=== PATIENT | male | born 1975 | race Caucasian/White ===

== ENCOUNTER 2024-03-26 22:35 | Observation (INO) | payer OTHER, SELFPAY ==
[2024-03-26] VITALS (7 sets, daily range): BP systolic 141–158; BP diastolic 94–104; PULSE 89–102; RESP 12–23; TEMP 37.2; O2SAT 95–97
--- NOTE | ~2024-03-26 | XR_ITS ---
EXAMINATION: XR chest 1V portable Exam Date/Time: 03/26/2024 22:55 CDT HISTORY: CHEST PAIN Comparison: None. RESULT: Lines, tubes, and devices: None. Lungs and pleura: Clear. Cardiomediastinal silhouette: Normal. Other: No acute osseous or upper abdominal finding. IMPRESSION: No acute cardiopulmonary process. Reviewed, dictated and finalized at location K.
--- NOTE | 2024-03-26 22:47 | PC.NURSE ---
DR HOYOS AT BEDSIDE FOR EVAL AND ASSESSMENT.
--- NOTE | 2024-03-26 22:52 | ECG_ITS ---
SEE SCANNED COPY FOR CONFIRMED REPORT MTDD
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
[2024-03-26 23:01] LABS: Basophils Absolute Auto 0.06 K/mm3 (0.00-0.10); Basophils Percent Auto 1.3 % (0.0-1.0); Eosinophils Absolute Auto 0.11 K/mm3 (0.02-0.50); Eosinophils Percent Auto 2.3 % (1.0-6.0); Hematocrit 43.4 % (40.0-54.0); Immature Granulocyte Absolute 0.01 K/mm3 (0.00-0.00); Immature Granulocyte Percent A 0.2 % (0.0-0.0); Immature Platelet Fraction Pct 1.5 % (1.0-7.0); Lymphocytes Absolute Auto 2.39 K/mm3 (1.10-4.50); Lymphocytes Percent Auto 49.8 % (18.0-42.0); Mean Corpuscular HGB Conc 34.6 g/dL (32-36); Mean Corpuscular Volume 95.4 fL (78.0-102.0); Monocytes Absolute Auto 0.42 K/mm3 (0.10-0.90); Monocytes Percent Auto 8.8 % (2.0-11.0); Neutrophils Absolute Auto 1.81 K/mm3 (1.70-7.20); Neutrophils Percent Auto 37.6 % (50.0-70.0); Red Blood Count 4.55 M/mm3 (4.70-6.10); Red Cell Distribution Width 13.1 % (11.6-14.4); White Blood Count 4.8 K/mm3 (4.8-10.8)
[2024-03-26 23:02] LABS: Platelet Count Result 91 K/mm3 (150-420)
[2024-03-26] MEDS: ASPIRIN 81 MG CHEWABLE TABLET 324 MG PO (23:06)
[2024-03-26] MEDS: NITROGLYCERIN OINTMENT 1 INCH DOSE TRANSDERM (23:07)
[2024-03-26 23:15] LABS: INR 0.9; Prothrombin Time 10.4 Seconds (9.50-12.1)
[2024-03-26 23:24] LABS: Albumin Level 3.5 g/dL (3.4-5.0); Bilirubin,Total 0.4 mg/dL (0.00-1.00); Blood Urea Nitrogen 15 mg/dL (7-18); Calcium 9.1 mg/dL (8.5-10.1); NT Pro B Type Natriuretic Pept 42 pg/mL (0-125)
[2024-03-26 23:39] LABS: Alanine Aminotransferase 38 U/L (16-63); Alkaline Phosphatase 87 U/L (46-116); Anion Gap 10 mmol/L (4-12); Aspartate Amino Transferase 27 U/L (15-37); Carbon Dioxide 28 mmol/L (21-32); Chloride 105 mmol/L (98-108); Estimated Glomerular Filt Rate > 60; Glucose 105 mg/dL (70-99); Osmolality Calculated 296 mOsm/kg (285-295); Potassium 3.5 mmol/L (3.5-5.1); Sodium 143 mmol/L (136-145); Total Protein 6.8 g/dL (6.4-8.2); Troponin I 5.8 ng/L (0.00-60.4)
[2024-03-26 23:40] LABS: Ethanol < 3 mg/dL (0-6)
[2024-03-27] VITALS (9 sets, daily range): BP systolic 111–128; BP diastolic 67–79; PULSE 59–100; RESP 16–20; TEMP 36.4–36.8; O2SAT 94–97; BMI 29.7
--- NOTE | 2024-03-27 01:11 | ADMGEN ---
This patient, Farshad Beck, was admitted to 2nd Floor Room 208-2. Patient/family oriented to hospital policies and general routines including ID bracelet, bed and alarms, visiting hours, pain management, procedures, bathroom and other care routines, personal items, smoking policy, room service/diet, and visiting hours. Information on how to activate the Rapid Response Team has been discussed. Patient/Family are encouraged to report perceived risks to care and to ask questions if they do not understand what they are told or what they should do.
[2024-03-27 02:26] LABS: Troponin I 5.7 ng/L (0.00-60.4)
[2024-03-27 05:57] LABS: Troponin I 9.1 ng/L (0.00-60.4)
--- NOTE | 2024-03-27 08:54 | PM.SD2 ---
Same Day Admit/Disch: HPI History of Present Illness Chief complaint: CHEST PAIN ANXIETY Narrative: Farshad Beck is a 48 year old male with a PMH of HLD, HTN, GERD, and possible asthma vs bronchitis who presented to the ED with complaints of sub-sternal chest pain yesterday after not taking his morning medications. He denies radiation of pain or associated shortness of breath. Activity did not seem to effect the nature of the pain. Initial troponin was negative, BNP negative. He was found to be hypertensive 150's/100's. He was given nitro paste with minimal improvement in chest pain. He was admitted for observation overnight with serial troponin measurements. On exam today he denies chest pain and states that his pain resolved after getting his blood pressure medications yesterday. He reports that he follows with a boy's adviser at [employer] whom he recently seen in January of this year. I reviewed his [facility] provider notes with his permission. His boy's adviser notes show recently having both a standard stress test and nuclear med stress test both negative for acute coronary concerns. Stress test report reads normal with frequent PVCs in isolated couplets seen at the peak of the stress test. His ECHO from 07/2023 was normal with an estimated EF of 60-65%. No systolic or diastolic function noted. He has no PMH of atrial fibrillation so I'm unsure why he is on diltiazem if only for blood pressure control. His lisinopril is only at 30 mg daily. Would recommend titrating this medication up and if needed could add amlodipine or htcz for further blood pressure control. Will discontinue his diltiazem and Imdur as is chest pain does not seem to be anginal but rather musculoskeletal. I also reviewed his PFT testing from his [facility]. Results show good patient effort with proportionate decrease in FEv1 and FVC suggestive of restrictive/pseudo defect with no significant acute response to bronchodilator. Lung volume showed no restrictive defect indicating finding on spirometry secondary to dynamic airway obstruction. ERV reduced 2/2 overweight. Diffusion in normal limits. Flow volume lops showed variable effort with no airflow limitations. EKG this morning shows NSR with a rate in the 70's. His labs and vitals have been reviewed. I have asked him to check his blood pressure daily in the morning prior to leaving for work. He has a monitor that allows him to take his pressure and the numbers upload to his PCP's office. He had not been taking his blood pressure because he had been instructed to take his BP 1 hour after taking his medications. He recently started a new job and is gone before he can check his pressure. I asked him to take it before his medication as it would be better to have some read rather than none. [facility] Past Medical History Medical History Anxiety Back pain GERD (gastroesophageal reflux disease) HLD (hyperlipidemia) HTN (hypertension) Social History Social History Smoking packs per day: 1 Smoking cigarettes per day: 20.0 Years smoked: 20 Smoking pack-years: 20.00 Smoking status: Current every day smoker Tobacco type: cigarettes Second hand tobacco smoke exposure: Yes Alcohol intake: current Drinks per week: 7 Substance use: never Substance use type: does not use Do You Feel Safe in your Home?: Yes Lack of Transportation: No Lack of Food: Never True Current Housing: I Have Housing Concerned About Future Housing: No Difficulty Paying Gas/Electric Bills: No Difficulty Paying for Meds: No Currently Unemployed: No Education: Associate Degree Difficulty w/ Childcare or Family Care: No Spiritual care concerns: No Same Day Admit/Disch: Med Pre-admit Medications Home Medications Medication Instructions Recorded Confirmed Type albuterol sulfate 90 mcg/actuation 90 mcg inhalation PRN 03/26/24 0
--- NOTE | 2024-03-27 08:56 | ECG_ITS ---
SEE SCANNED COPY FOR CONFIRMED REPORT MTDD
--- NOTE | 2024-03-27 09:37 | PC.NURSE ---
Provider at bedside, asked race and sports book writer to hold am meds pending possible changes at this time.
[2024-03-27] MEDS: GABAPENTIN 300 MG CAPSULE PO (10:16)
[2024-03-27] MEDS: ATORVASTATIN 40 MG TABLET PO (10:16)
[2024-03-27] MEDS: lisinopriL 20 MG TABLET 40 MG PO (10:16)
[2024-03-27] MEDS: PANTOPRAZOLE 40 MG TABLET PO (10:17)
[2024-03-27 10:52] LABS: Cholesterol 170 mg/dL (0-200); HDL Direct 46 mg/dL (40-60); LDL Cholesterol Calculated 94 mg/dL (<130); Triglycerides 151 mg/dL (0-150)
--- NOTE | 2024-03-27 12:45 | PC.NURSE ---
Discharge instructions given to patient and patient's . Both voiced understanding. Patient left unit on foot with his and left property in privately owned vehicle. Personal items sent home with patient upon discharge.
--- NOTE | 2024-03-28 12:32 | PC.NURSE ---
Discharge call back attempted, no answer
--- NOTE | 2024-03-29 12:33 | PC.NURSE ---
Discharge call back attempted, no answer
--- NOTE | 2024-03-30 13:28 | PC.NURSE ---
Discharge call back completed, to see PMD today to review medications, no questions regarding dc instructions
== END 2024-03-27 12:45 | disposition home or self-care (01) ==
LOC: CHSED 03-27 00:07 → CHS2ND 03-27 07:53
PROVIDERS: Nurse Practitioner Acute Care; Admitting Provider Internal Medicine; Emergency Provider Emergency Medicine; PCP Nurse Practitioner Family; Visit Provider Internal Medicine
DX: R07.9 Chest pain, unspecified (principal); I10 Essential (primary) hypertension; E78.5 Hyperlipidemia, unspecified; M54.12 Radiculopathy, cervical region; F41.9 Anxiety disorder, unspecified; F17.210 Nicotine dependence, cigarettes, uncomplicated; Z79.899 Other long term (current) drug therapy
CPT/HCPCS: 36415; 71045; 80053; 80061; 80307; 83880; 84484; 85025; 85055; 85610; 85730; 93005; 99285; A9270; G0378; G0379

== ENCOUNTER 2025-07-08 23:04 | Emergency (ER) | payer SELFPAY ==
--- NOTE | ~2025-07-08 | CT_ITS ---
Non-contrast Head CT History: Trauma Technique: Axial non-contrast imaging of the brain was performed. Dose reduction technique was used on this scan by utilizing automated exposure control and iterative reconstruction technique. The dose-length product (DLP) was 681.00 mGy-cm. Findings: There is no evidence of intracranial hemorrhage, mass lesion, or acute infarct. Brain parenchyma appears normal. The ventricles and subarachnoid spaces are normal in size. The calvarium appears normal. The visualized paranasal sinuses and mastoid air cells are clear. Impression: No significant abnormality seen. Reviewed, dictated and finalized at location . Impression: No significant abnormality seen.
--- NOTE | ~2025-07-08 | CT_ITS ---
Noncontrast CT scan of the cervical spine Technique: Multiple contiguous axial [address] images of the cervical spine were obtained and reconstructed in 2D sagittal and coronal planes on the acquisition scanner. Dose reduction technique was used on this scan by utilizing automated exposure control, adjustment of the mA and/or kV according to patient size. The dose-length product (DLP) was 610.37 mGy-cm. Clinical History: Pain Findings: No fractures or dislocations. There is advanced degenerative disc narrowing at C6-C7. Remaining disc spaces are relatively well-preserved. There is disc osteophyte complex at C6-C7 with bilateral neural foraminal narrowing. No prevertebral soft tissue swelling. Impression: No fracture or subluxation of the cervical spine. Degenerative change at the C6-C7 level, as detailed above. Reviewed, dictated and finalized at [facility]. Impression: No fracture or subluxation of the cervical spine. Degenerative change at the C6-C7 level, as detailed above.
--- NOTE | ~2025-07-08 | CT_ITS ---
Clinical Indication: Injury CT Scan of the Chest, Abdomen, and Pelvis with Contrast: Technique: Contiguous sections were acquired throughout the chest, abdomen, and pelvis after intravenous administration of 100 cc of Omnipaque 350. Dose reduction technique was used on this scan by utilizing automated exposure control and iterative reconstruction technique. The dose-length product (DLP) was 1629.89 mGy-cm. Findings: There is no evidence of any significant mediastinal, hilar or axillary lymphadenopathy. The mediastinal soft tissues and vascular structures appear normal. No pericardial effusion. Trace left pleural effusion present. No right pleural effusion. There are acute fractures of left second, third, fourth, fifth, sixth, seventh, and eighth ribs. There is also acute, comminuted, nearly nondisplaced fracture of the distal left clavicular shaft.. There is minimal left basilar atelectatic change. No pneumothorax. There is diffuse hepatic steatosis. The spleen, pancreas, gallbladder, adrenals and kidneys are within normal limits. No evidence of aortic aneurysm. No lymphadenopathy. No bowel obstruction or bowel wall thickening. Small fat-containing umbilical hernia noted. Urinary bladder is unremarkable. No pelvic mass seen. No ascites. Small fat- containing left inguinal hernia present. There are chronic compression fracture deformities of T7, T8, T9, T10, and T11. Impression: Acute, minimally displaced fractures of the left second through eighth ribs. Acute comminuted, nondisplaced fracture the distal left clavicular shaft. Trace left pleural effusion with mild left basilar atelectatic change. Diffuse hepatic steatosis. Chronic compression fracture deformities of the mid to lower thoracic spine, as above. Reviewed, dictated and finalized at [facility]. Impression: Acute, minimally displaced fractures of the left second through eighth ribs. Acute comminuted, nondisplaced fracture the distal left clavicular shaft. Trace left pleural effusion with mild left basilar atelectatic change. Diffuse hepatic steatosis. Chronic compression fracture deformities of the mid to lower thoracic spine, as above.
[2025-07-08 23:26] VITALS: BP 127/95; PULSE 99; RESP 18; TEMP 37; O2SAT 96
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
--- OUTSIDE RECORDS SUMMARY | 2025-07-09 00:53 | XMS_ITS | Clinical Summary ---
Author Organization [facility] [address] Address [address] [place] [address] Phone Care Team Providers Care Hunting And Fishing Guide Name Role Phone Pederson, Aneesh Albrecht NP Primary Care Provider [phone] Allergies Active Allergy Reactions Criticality Noted Date Comments Metoprolol Shortness of breath High 09/14/2023 Medications atorvastatin (LIPITOR) 40 mg tablet Active nitroglycerin (NITROSTAT) 0.3 mg SL tablet 07/26/2023 Active albuterol HFA (PROVENTIL HFA,VENTOLIN HFA,PROAIR HFA) 90 mcg/actuation inhaler Inhale 2 puffs 07/22/[address] (PROTONIX) 40 mg EC tablet Take 1 tablet (40 mg total) by mouth daily Active lisinopriL (PRINIVIL,ZESTR IL) 30 mg tablet Take 1 tablet (30 mg total) by mouth daily Active gabapentin (NEURONTIN) 300 mg capsule Take 1 capsule (300 mg total) by mouth 3 (three) times a day as needed 11/02/2023 Active cloNIDine (CATAPRES) 0.1 mg tablet TAKE 1 TO 2 TABLETS BY MOUTH AT BEDTIME NEEDED FOR SLEEP 12/16/2023 Active hydrOXYzine (ATARAX) 25 mg tablet TAKE 1 TO 2 TABLETS BY MOUTH AT BEDTIME NEEDED FOR SLEEP 12/16/2023 Active montelukast (SINGULAIR) 10 mg tablet 12/20/2023 Active topiramate (TOPAMAX) 50 mg tablet TAKE 1/2 TABLET BY MOUTH DAILY AT BEDTIME FOR 7 DAYS, THEN INCREASE TO 1 TABLET DAILY AT BEDTIME FOR 7 DAYS, THEN 1/2 TABLET IN THE MORNING AND 1 TABLET IN THE EVENING AT BEDTIME FOR 7 DAYS, THEN 1 TABLET TWICE DAILY UNTIL FOLLOW UP 12/23/2023 Active dilTIAZem CD (CARDIZEM CD) 300 mg 24 hr capsule Take by mouth daily 12/22/2023 Active Active Problems Problem Noted Date Diagnosed Date Hepatic steatosis 03/04/2021 Assessment & Plan (03/24/2021 2:19 PM CDT): PLAN Lose weight and stop etoh. Chronic alcoholism 02/03/2021 Tobacco use disorder 02/03/2021 Gastroesophageal reflux disease 02/03/2021 Assessment & Plan (03/24/2021 2:16 PM CDT): PLAN Continue pantoprazol and reduce etoh. Return prn Essential hypertension 02/03/2021 Peripheral neuropathic pain 08/03/2017 Immunizations Immunization Administration Dates Next Due Tdap 04/06/2020,04/15/2015 Medical History Medical History Date Comments GERD (gastroesophageal reflux disease) Chronic alcoholism (HCC) Hypertension Family History Medical History Relation Name Comments COPD Father Deep vein thrombosis Father Heart disease Father Melanoma Father Osteoporosis Father Rheum arthritis Father Stroke Father Relation Name Status Comments Father Social History Tobacco Use Types Packs/Day Years Used Date Smoking Tobacco: Every Day Cigarettes 1 17 Smokeless Tobacco: Never Tobacco Cessation:Ready to Q uit: Yes; Counseling Given: Yes Comments:Trying to cut back AUDIT-C Answer Date Recorded Q1: How often do you have a drink containing alcohol? 4 or more times a week 01/17/2024 Q2: How many drinks containi ng alcohol do you have on a typical day when you are drinking? 10 or more Q3: How often do you have si x or more drinks on one occasion? Never 01/17/2024 Hunger Vital Sign Answer Date Recorded Within the past 12 months, y ou worried that your food would run out before you got the money to buy more. Never true 01/17/20 24 Within the past 12 months, t he food you bought just didn't last and you didn't have money to get more. Never true 01/17/2024 Sex and Gender Information Value Date Recorded Sex Assigned at Not on file Legal Sex Male 9:24 AM CDT Gender Identity Not on file Sexual Orientation Not on file Obstetrics History Last Filed Vital Signs Vital Sign Reading Time Taken Comments Blood Pressure 152/92 01/17/2024 12:26 PM GLASS SETTER Pulse 80 01/17/2024 12:26 PM GLASS SETTER Temperature 36.7 C (98 F) 01/17/2024 11:18 AM GLASS SETTER Respiratory Rate 18 01/17/2024 12:26 PM GLASS SETTER Oxygen Saturation 98% 01/17/2024 12:26 PM GLASS SETTER Inhaled Oxygen Concentration - - Weight 94.8 kg (209 lb) 01/17/2024 11:18 AM GLASS SETTER Height 177.8 cm (5' 10) 01/17/2024 11:18 AM GLASS SETTER Body Mass Index 29.99 01/17/2024 11:18 AM GLASS SETTER Plan of Treatment Health Maintenance Due Date Last Done Comments Colon Cancer Screening-Colonoscopy 1976 Depression Screening 1976 Hepatitis C Screening 1976 Hepatitis B Screening 1994 Regular Well Visit/Exam 18-64 1994 Pneumococcal vaccine <65 (1 of 2 - PCV) 1995 Influenza Vaccine (#1) 2025 DTaP/Tdap/Td Vaccine (3 - Td or Tdap) 04/06/2030, 04/15/2015 Goals Goal Patient Goal Type Associated Problems Recent Progress Patient-Stated? Author CCM Chronic Pain Care Plan Chronic Care Management Improving( 11:19 AM GLASS SETTER) Manjula Ladd, RN Note: Problem: Chronic Pain Goals: 1. Minimize further functional decline 2. Maximize quality of life 3. Control pain Strategies: - Activity/exercise program recommendation - Conservative stepwise pain medicine strategy with multi-disciplinary approach - Recommend healthy lifestyle strategies and compensatory methods as needed Insurance [place] Directives For more information, please contact: [phone] * Full Code (Latest Code Status on File) Date Activated Date Inactivated Comments 02/27/2021 10:51 AM 02/27/2021 4:53 PM Care Teams Hunting And Fishing Guide Relationship Specialty Start Date End Date Aneesh Pederson NP [address] [place] [address] PCP - General Family Medicine 08/26/23
--- OUTSIDE RECORDS SUMMARY | 2025-07-09 00:53 | XMS_ITS | Encounter Summary ---
Author Organization [facility] Address [address] [place] [address] Phone Care Team Providers Care Postpartum Nurse Name Role Phone Maureen Scanlon APRN, NOELLE Unavailable Bridgette Morris APRN Primary Care Provider [phone] Carlo Ibrahim MD Unavailable [phone] Encounter Details Date Type Department Care Team (Latest Contact Info) Description 10/03/2024 [facility] [address] [place] [address] Ambrocio Elias MD [address] [place] [address] Dyspnea, unspecified type (Primary Dx) Social History Tobacco Use Types Packs/Day Years Used Date Smoking Tobacco: Every Day Cigarettes Smokeless Tobacco: Never Alcohol Use Standard Drinks/Week Comments Yes 0 (1 standard drink = 0.6 oz pur e alcohol) Sexually Active Control Partners Comments Yes Sex and Gender Information Value Date Recorded Sex Assigned at Not on file Legal Sex Male 9:17 AM PHARMACIST TECHNICIAN Gender Identity Not on file Sexual Orientation Not on file documented as of this encounter Plan of Treatment Not on file documented as of this encounter Results * MISCELLANEOUS TEST ([facility]) (10/11/2024 2:25 PM PHARMACIST TECHNICIAN) RESULT SEE NOTE 10/17/2024 10:45 AM 10/17/2024 10:43 AM PHARMACIST TECHNICIAN [facility] Blood Venipuncture / Unknown 10/11/2024 2:25 PM PHARMACIST TECHNICIAN 10/11/2024 3:30 PM PHARMACIST TECHNICIAN [facility] - 10/17/2024 10:43 AM PHARMACIST TECHNICIAN Test Result Flag Unit RefValue Hypersensitivity Pneumonitis Panel Alternaria <2.0 mcg/mL <12.0 tenuis/alternata IgG Aspergillus fumigatus IgG 2.9 mcg/mL <46.0 Aureobasidium pullulans <2.0 mcg/mL <18.0 IgG Laceyella sacchari IgG 4.9 mcg/mL <25.0 Micropolyspora faeni IgG <2.0 mcg/mL <5.0 Penicillium Chrysogenum 3.1 mcg/mL <22.0 IgG Phoma betae IgG <2.0 mcg/mL <8.0 Trichoderma viride IgG <2.0 mcg/mL <10.0 Antibody levels greater than the reference range indicate that the patient has been immunologically sensitized to the antigen. The significance of elevated IgG depends on the nature of the antigen and the patient's clinical history. The test method was the [employer] ImmunoCAP. *This test was developed and its performance characteristics determined by [facility]. It has not been cleared or approved by the U.S. Food and Drug Administration. FLAG Interpretation: A = Abnormal, H = High, L = Low Test Performed by: [employer] [address] [place] [address] us Ambrocio Elias MD LAB SEND OUTS Final Result [facility] * ASPERGILLUS FUMIGATUS, IGG ANTIBODIES, SERUM, [facility] (10/11/2024 2:25 PM PHARMACIST TECHNICIAN) Pathologist [facility] ASPERGILLUS FUMIGATUS, IGG AB 7.7 <=102 mg/L 10/15/2024 5:59 PM PHARMACIST TECHNICIAN [facility] Comment: ADDITIONAL INFORMATION This test was developed and its performance characteristics determined by [facility] in a manner consistent with CLIA requirements. This test has not been cleared or approved by the U.S. Food and Drug Administration. Test Performed by: [facility] [address] [place] [address] Systems Support Officer: Naveen Culver Ph.D.; CLIA# [id number] Blood Venipuncture / Unknown 10/11/2024 2:25 PM PHARMACIST TECHNICIAN 10/11/2024 3:30 PM PHARMACIST TECHNICIAN Ambrocio Elias MD LAB SEND OUTS Final Result Performing Organization Address [facility] Co de Phone Number [facility] US * MOLD: P. NOTATUM IGE (10/11/2024 2:25 PM PHARMACIST TECHNICIAN) MOLD P. NOTATUM <0.10 <0.35 kU/L 1:02 PM PHARMACIST TECHNICIAN [facility] Blood Venipuncture / Unknown 10/11/2024 2:25 PM PHARMACIST TECHNICIAN 10/11/2024 3:30 PM PHARMACIST TECHNICIAN Narrative [facility] - 10/12/2024 1:02 PM PHARMACIST TECHNICIAN IgE Class kU/L Level of IgE AB 0 <0.35 Absent/undetectable 1 0.35-0.70 Low Level 2 0.71-3.50 Moderate Level 3 3.51-17.50 High Level 4 17.51-50.00 Very High Level 5 50.01-100.00 Very High Level 6 >100.00 Very High Level us Ambrocio Elias MD CHEMISTRY ORDERABLES Final Res ult Performing Organization Address City/[facility]/ZIP Co de Phone Number [facility] [address] [place] [address], [place] * MISCELLANEOUS TEST ([facility]) (10/11/2024 2:25 PM PHARMACIST TECHNICIAN) RESULT SEE NOTE 10/17/2024 09:43 AM 10/17/2024 9:40 AM PHARMACIST TECHNICIAN [facility] Blood Venipuncture / Unknown 10/11/2024 2:25 PM PHARMACIST TECHNICIAN 10/11/2024 3:30 PM PHARMACIST TECHNICIAN [facility] - 10/17/2024 9:40 AM PHARMACIST TECHNICIAN Test Result Flag Unit RefValue Helminthosporium sativum IgE <0.35 kU/L <0.35 Class 0 CLASS INTERPRETATION: <0.35 kU/L=0, Below Detection; 0.35-0.69 kU/L= 1, Low Positive; 0.70-3.49 kU/L= 2, Moderate Positive; 3.50-17.49 kU/L= 3, Positive; 17.50-49.99 kU/L= 4, Strong Positive; >49.99 kU/L= 5, Very Strong Positive *This test was developed and its performance characteristics determined by [facility]. It has not been cleared or approved by the U.S. Food and Drug Administration. FLAG Interpretation: A = Abnormal, H = High, L = Low Test Performed by: [facility] [id number] [place] [address] Ambrocio Elias MD LAB SEND OUTS Final Result [facility] * MISCELLANEOUS TEST ([facility]) (10/11/2024 2:25 PM PHARMACIST TECHNICIAN) RESULT SEE NOTE 10/15/2024 11:46 AM 10/15/2024 11:44 AM PHARMACIST TECHNICIAN [facility] [employer] Blood Venipuncture / Unknown 10/11/2024 2:25 PM PHARMACIST TECHNICIAN 10/11/2024 3:30 PM PHARMACIST TECHNICIAN [facility] - 10/15/2024 11:44 AM PHARMACIST TECHNICIAN Test Result Flag Unit RefValue Fusarium Moniliforme, IgE <0.10 kU/L <0.70 Class 0 (Negative <0.10) Test Performed by: [facility] [address] [place] [address] Systems Support Officer: Naveen Culver Ph.D.; CLIA# [id number] us Ambrocio Elias MD LAB SEND OUTS Final Result [facility] documented in this encounter Visit Diagnoses Diagnosis Dyspnea, unspecified type- Primary documented in this encounter Care Teams Postpartum Nurse Relationship Specialty Start Date End Date Bridgette Morris [facility]N [facility], [address] [place] [address] PCP - General Advanced Practice Nurse 09/24/24 Maureen Scanlon APRN, NOELLE [address] [facility] [address] [place] [address] Nurse Practitioner Advanced Practice Nurse 03/19/24 Carlo Ibrahim MD [address] [facility] [address] [place] [address] Consulting Physician Interventional Cardiology 10/03/24 documented as of this encounter
--- OUTSIDE RECORDS SUMMARY | 2025-07-09 00:53 | XMS_ITS | Encounter Summary ---
Author Organization [facility] Address [address] [place] [address] Care Team Providers Care Quality Assistant Name Role Phone Aneesh Pederson NP Primary Care Provider Reason for Visit * Reason Onset Date Comments FYI 02/08/2024 Encounter Details Date Type Department Care Team (Late st Contact Info) Description 02/08/2024 Telephone [facility] [address] [facility] [address] [place] [address] Aleks Trevino, DO [address] [facility] [address] [place] [address] FYI Social History Tobacco Use Types Packs/Day Years Used Date Smoking Tobacco: Every Day Cigarettes 1 17 Smokeless Tobacco: Never Comments:Trying to cut back AUDIT-C Answer Date [...] on file documented as of this encounter Goals Goal Patient Goal Type Associated Problems Recent Progress Patient-Stated? Author CCM Chronic Pain Care Plan Chronic Care Management Improving( 11:19 AM ADOBE LAYER) Manjula Ladd, NENA Note: Problem: Chronic Pain Goals: 1. Minimize further functional decline 2. Maximize quality of life 3. Control pain Strategies: - Activity/exercise program recommendation - Conservative stepwise pain medicine strategy with multi-disciplinary approach - Recommend healthy lifestyle strategies and compensatory methods as needed documented as of this encounter Visit Diagnoses Not on filedocumented in this encounter Care Teams Quality Assistant Relationship Specialty Start Date End Date Aneesh Pederson NP [address] [place] [address] PCP - General Family Medicine 08/26/23 documented as of this encounter
--- OUTSIDE RECORDS SUMMARY | 2025-07-09 00:53 | XMS_ITS | Clinical Summary ---
Author Organization [facility] Address [address] [place] [address] Phone Care Team Providers Care Broadloom Weaver Name Role Phone Maureen Scanlon APRN, NOELLE Unavailable Bridgette Morris APRN Primary Care Provider [phone] Carlo Ibrahim MD Unavailable [phone] Allergies No known active allergies Medications ALBUTEROL IN take by inhalation. Active atorvastatin (LIPITOR) 40 MG Tablet Take 40 mg by mouth daily. Active gabapentin (NEURONTIN) 300 MG Capsule Take 300 mg by mouth 3 times daily. Active Lisinopril 30 MG Tablet Take 30 mg by mouth daily. Active nitroGLYCERIN (NITROSTAT) 0.3 MG SL Tablet 0.3 mg by Sublingual route every 5 minutes as needed. Active pantoprazole (PROTONIX) 40 MG Pack 40 mg by Per NG tube route 2 times daily. Active Levocetirizine Dihydrochloride 5 MG Tablet Take 1 Tablet by mouth daily. Active Umeclidinium-Vilant moris (ANORO ELLIPTA) 62.5-25 MCG/ACT AEROSOL POWDER, BREATH ACTIVATEDIndication s:Centrilobular emphysema (HCC) take 1 Puff by inhalation daily. 1 Each 5 09/18/20 24 Active cloNIDine (CATAPRES) 0.1 MG TabletIndications:L ightheaded Take 0.1 mg by mouth. 12/16/19 24 Active hydrOXYzine (ATARAX) 25 MG TabletIndications:L ightheaded Take 25 mg by mouth. 12/16/19 24 Active amLODIPine (NORVASC) 5 MG Tablet Take 2 Tablets by mouth daily. 90 Tablet 01/16/20 25 Active Active Problems Problem Noted Date Diagnosed Date Primary hypertension 10/02/2024 Alcohol abuse 10/02/2024 Stable angina pectoris 09/18/2024 Pulmonary emphysema 03/19/2024 Chronic cough 12/20/2023 Dyspnea on exertion 12/20/2023 Class 1 obesity due to exces s calories without serious comorbidity with body mass index (BMI) of 30.0 to 30.9 in adult 12/20/2023 Personal history of tobacco use 12/20/2023 Social History Tobacco Use Types Packs/Day Years Used Date Smoking Tobacco: Every Day Cigarettes Smokeless Tobacco: Never Alcohol Use Standard Drinks/Week Comments Yes 0 (1 standard drink = 0.6 oz pur e alcohol) Sexually Active Control Partners Comments Yes Sex and Gender Information Value Date Recorded Sex Assigned at Not on file Legal Sex Male 9:17 AM PUMPING SUPERVISOR Gender Identity Not on file Sexual Orientation Not on file Last Filed Vital Signs Vital Sign Reading Time Taken Comments Blood Pressure 168/110 10/02/2024 3:56 PM PUMPING SUPERVISOR Pulse 100 10/02/2024 3:56 PM PUMPING SUPERVISOR Temperature 36.7 C (98 F) 10/02/2024 3:56 PM PUMPING SUPERVISOR Respiratory Rate 16 10/02/2024 3:56 PM PUMPING SUPERVISOR Oxygen Saturation 98% 10/02/2024 3:56 PM PUMPING SUPERVISOR Inhaled Oxygen Concentration - - Weight 94.3 kg (208 lb) 10/02/2024 3:56 PM PUMPING SUPERVISOR Height 177.8 cm (5' 10) 10/02/2024 3:56 PM PUMPING SUPERVISOR Body Mass Index 29.84 10/02/2024 3:56 PM PUMPING SUPERVISOR Plan of Treatment Health Maintenance Due Date Last Done Comments Hepatitis C Virus (HCV) Screening 1976 Pneumococcal Immunization Combined (1 of 2 - PCV) 1995 Cologuard 2021 Colonoscopy 2021 Colorectal Cancer Screening 2021 Immunochemical Fecal Occult Blood 2021 SARS-COV-2 Immunization ( season) 2024 04/15/2021, 03/25/2021 Influenza Immunization (#1) 2025 08/01/2023 Respiratory Syncytial Virus (RSV) Immunization (Adult) (1 - 1-dose 75+ series) 2051 DTaP/Tdap/Td Immunization Discontinued 2019, 04/15/2015 TdaP Immunization Completed 04/06/2020, 04/15/2015 Hepatitis B Immunization Completed 022, 03/12/2022, 02/12/2022 Human Papillomavirus (HPV) Immunization Aged Out No longer eligible based on patient's age to complete this topic Meningococcal Immunization (ACWY) Aged Out No longer eligible based on patient's age to complete this topic Rotavirus Immunization Aged Out No lo nger eligible based on patient's age to complete this topic Insurance MEDICAID [employer] [facility] Care Teams Broadloom Weaver Relationship Specialty Start Date End Date Bridgette Morris APRN 2 [facility], [address] [place] [address] PCP - General Advanced Practice Nurse 09/24/24 Maureen Scanlon APRN, DIRECTOR OF PHYSICAL SECURITY #2 [facility] [address] [place] [address] Nurse Practitioner Advanced Practice Nurse 03/19/24 Carlo Ibrahim MD #2 [facility] [address] [place] [address] Consulting Physician Interventional Cardiology 10/03/24
[2025-07-09 01:09] LABS: Hematocrit 43.7 % (42.0-52.0); Hemoglobin 15.2 g/dL (14.0-18.0); Immature Granulocyte Percent A 0.4 % (0-0.5); Lymphocytes Absolute Auto 1.63 K/mm3 (0.9-3.2); Mean Corpuscular HGB Conc 34.8 g/dl (32-36); Mean Corpuscular Hemoglobin 33.6 pg (26-34); Mean Corpuscular Volume 96.5 fl (80-100); Nucleated Red Blood Cells Absolute Auto 0.000 K/mm3 (0.0-0.012); Nucleated Red Blood Cells Perc 0.0 % (0.0-0.2); Platelet Count Result 199 k/mm3 (150-375); Red Blood Count 4.53 M/mm3 (4.6-6.20); White Blood Count 10.7 K/mm3 (4.5-10.0)
[2025-07-09] MEDS: HYDROmorphone HCL INJ (*CRX) 1 MG/ML SYR IV PUSH ×2 (01:13→04:53)
[2025-07-09 01:22] VITALS: BP 124/90; PULSE 90; RESP 22; O2SAT 96
[2025-07-09 01:23] VITALS: PULSE 90
[2025-07-09 01:28] LABS: Alanine Aminotransferase 52 U/L (6-50); Albumin Level 4.1 g/dL (3.5-5.1); Alkaline Phosphatase 76 U/L (38-126); Anion Gap 7 mmol/L (4-12); Aspartate Amino Transferase 67 U/L (17-59); Bilirubin,Total 0.3 mg/dL (0.2-1.3); Blood Urea Nitrogen 12 mg/dL (9-20); Calcium 8.9 mg/dL (8.4-10.2); Carbon Dioxide 26 mmol/L (22-30); Chloride 106 mmol/L (98-107); Estimated CRCL calculation 101 ml/min; Estimated Glomerular Filt Rate > 60; Glucose 106 mg/dL (65-110); Potassium 3.7 mmol/L (3.4-5.0); Sodium 139 mmol/L (137-145); Total Protein 7.0 g/dL (6.3-8.2)
[2025-07-09 02:02] LABS: INR 0.9; Prothrombin Time 12.6 Seconds (11.1-14.7)
[2025-07-09 02:03] LABS: Partial Thromboplastin Time 25.5 Seconds (22.3-36.8)
[2025-07-09 02:53] VITALS: BP 125/87; PULSE 97; RESP 22; O2SAT 96
[2025-07-09 04:00] VITALS: BP 126/89; PULSE 99; RESP 19; O2SAT 94
[2025-07-09 04:56] VITALS: BP 126/89; PULSE 99; RESP 19; O2SAT 94
== END 2025-07-09 04:57 | disposition short-term general hospital (02) ==
PROVIDERS: Emergency Provider Emergency Medicine; PCP Nurse Practitioner Family
DX: S01.01XA Laceration without foreign body of scalp, initial encounter (principal); S22.42XA Multiple fractures of ribs, left side, initial encounter for closed fracture; S27.321A Contusion of lung, unilateral, initial encounter; S42.025A Nondisplaced fracture of shaft of left clavicle, initial encounter for closed fracture; I10 Essential (primary) hypertension; E78.5 Hyperlipidemia, unspecified; K21.9 Gastro-esophageal reflux disease without esophagitis; F17.210 Nicotine dependence, cigarettes, uncomplicated; Z79.899 Other long term (current) drug therapy; V17.4XXA Pedal cycle driver injured in collision with fixed or stationary object in traffic accident, initial encounter; Y93.55 Activity, bike riding; K76.0 Fatty (change of) liver, not elsewhere classified; M48.02 Spinal stenosis, cervical region
CPT/HCPCS: 12001; 36415; 70450; 71260; 72125; 74177; 80053; 85025; 85610; 85730; 96374; 96376; 99285; J1171; Q9967